=== PATIENT | male | born 1965 | race Caucasian/White ===

== ENCOUNTER 2022-04-04 02:45 | Outpatient (RCR) | payer OTHER, SELFPAY ==
[2022-04-04 09:49] LABS: Abs Immature Grans 0.02 10^3/uL (0.0-0.06); Absolute Basophil Count 0.08 10^3/uL (0.0-0.2); Absolute Eosinophil Count 0.32 10^3/uL (0.0-0.7); Absolute Lymphocyte Count 1.94 10^3/uL (1.2-3.4); Absolute Monocyte Count 0.93 10^3/uL (0.1-0.8); Absolute Neutrophil Count 4.79 10^3/uL (1.2-6.7); HCT 40.3 % (40.0-50.0); HGB 13.2 g/dL (13.5-17.5); Immature Grans % 0.2; MCH 28.7 pg (27.0-33.0); MCHC 32.8 % (32.0-36.0); MCV 88 fL (80-95); MPV 9.9 fL (8.0-11.0); Monocytes % 11.5; Neutrophils % 59.3; Platelet Count 239 10^3/uL (130-400); RDW 15.2 % (11.8-14.1); RDW-SD 49.1 fL; WBC 8.08 10^3/uL (4.4-10.8)
[2022-04-04] MEDS: Normal Saline Flush 10 ML SYR IVP (09:53)
[2022-04-04 10:04] LABS: ALT 23 U/L (16-63); AST 28 U/L (15-37); Albumin 3.5 g/dL (3.4-5.0); Alkaline Phosphatase 104 U/L (46-116); Anion Gap 4.3 mmol/L (3-11); BUN 16 mg/dL (7-18); Bilirubin, Total 0.3 mg/dL (0.2-1.0); CO2 31.7 mmol/L (21.0-32.0); CREATININE 0.7 mg/dL (0.70-1.30); Calcium 9.2 mg/dL (8.5-10.1); Chloride 103 mmol/L (98-107); Glucose 90 mg/dL (74-106); Magnesium 1.8 mg/dL (1.8-2.4); Potassium 4.1 mmol/L (3.5-5.1); Sodium 139 mmol/L (136-145); Total Protein 7.3 g/dL (6.4-8.2)
== END 2022-04-05 23:59 | disposition home or self-care (01) ==
LOC: INF 02:45
PROVIDERS: PCP Family Medicine; Visit Provider Internal Medicine Medical Oncology
DX: C34.2 Malignant neoplasm of middle lobe, bronchus or lung (principal); Z45.2 Encounter for adjustment and management of vascular access device
CPT/HCPCS: 36591; 80053; 83735; 85025

== ENCOUNTER 2022-04-06 12:40 | Emergency (ER) | payer OTHER, SELFPAY ==
[2022-04-06] VITALS (8 sets, daily range): BP systolic 147–154; BP diastolic 85–88; PULSE 78–97; RESP 13–25; TEMP 36.4; O2SAT 97–99
--- NOTE | 2022-04-06 12:54 | DI.CT_ITS ---
Exam(s) CT NECK CHEST W EXAM: CT NECK CHEST W CLINICAL HISTORY: neck swelling, r/o mass/obstruction TECHNIQUE: Imaging Protocol: Axial computed tomography images with coronal and sagittal reformatted images were created and reviewed CONTRAST MATERIAL: Intravenous: Omnipaque 350 Contrast volume:100 cc Oral: no COMPARISON: No exams were available for comparison FINDINGS: Neck CT: Parotids/submandibular/thyroid gland: Normal. Lymphadenopathy: Enlarged right supraclavicular lymph nodes, the largest 2.5 cm. Carotids/Jugular: Within normal limits. Vertebral arteries are patent. Soft tissues: The floor the mouth is unremarkable. The epiglottis and vocal cords are within normal limits. Visualized portions of the brain are unremarkable. Visualized sinuses and mastoid air cells are clear. Orbits are unremarkable. Chest CT: There is a large heterogeneous mass in the right middle lobe in portion of the inferior anterior righ t lower lobe. The mass extends into the subcarinal region versus additional subcarinal adenopathy. Th ere is compression of the lower S VC by the mass. The right pulmonary arteries are engulfed by the ma ss. The right middle lobe bronchi are also engulfed by the mass. There are increased densities are no kiarra which appear somewhat spiculated in the right upper lobe is well as interstitial thickening which could indicate interstitial spread. No pleural or pericardial effusions. Scattered tiny granulomata. No destructive bony lesion or compression fracture is seen. There is bilateral gynecomastia. There is a port over the right upper chest wall with the tip in the upper right atrium. There is left ventricular enlargement. There are mild coronary artery calcifications. The aorta is no rmal in diameter and shows mild calcification. ABDOMEN: Evaluation somewhat limited due to respiratory motion. And streak artifact. Liver: Normal density. No measurable mass. Gallbladder and biliary tract: No radiodense calculus or dilation. Pancreas: Normal density, no abnormal calcifications or inflammatory process. Spleen: Normal. Kidneys: Unremarkable where visualized. Adrenal glands: No masses seen. Abdominal Aorta: Abdominal portion non-dilated. Atherosclerotic changes. IMPRESSION: large right-sided mass consistent with patient's history of known small cell lung carcinoma. The mas s compresses the lower SVC and engulfs the right pulmonary arteries and right middle lobe bronchi. There are enlarged right supraclavicular lymph nodes but no other significant abnormality in the neck . RADIATION DOSE DELIVERED: 1,018.24mGy.cm Total DLP DATA REPOSITORY: All CT scans at this facility are submitted to the National Radiology Data Registry (NRDR) Dose Index Registry (DIR) with the [employer] (A[employer]). RADIATION OPTIMIZATION: All CT scans at this facility use at least one of these dose optimization te chniques: automated exposure control; mA and/or kV adjustment per patient size (includes targeted exa ms where dose is matched to clinical indication); or iterative reconstruction.
--- NOTE | 2022-04-06 12:57 | W.ED.GENAD ---
Discharge Plan Disposition Patient Disposition: Home Condition: Stable Discharge Details Clinical Impression: SVC syndrome Primary Care Provider: Adonis Arreaga ED Provider: Sanjay Andrade Home Meds and New Rx's Prescriptions: Continued atorvastatin 20 mg tablet 20 mg PO 1XD Label Comments: TAKE 1 TABLET BY MOUTH ONCE DAILY lisinopril 20 mg tablet 20 mg PO 1XD multivitamin with iron-mineral Tablet 1 tab PO 1XD nicotine (polacrilex) 2 mg lozenge 2 mg PO 1XD Discharge Instructions Instructions: Superior Vena Cava Syndrome (DC) Additional Instructions: you should be contacted with an appointment with vascular surgery, I spoke with Dr. Kirkpatrick from vascular surgery at [facility] if you feel more ill, have severe pain or difficulty breathing return to the emergency department Medical Decision Making <Gloria Venegas DO - Last Filed: 04/06/22 14:43> 1250 -- 56-year-old male with a history of small cell lung cancer diagnosed in March 2022 who admits to facial and neck swelling for the past few weeks, worse over the past 2 days since starting a new chemotherapy infusion. Sent come to cancer center for possible concern for angioedema. Patient has no significant lip or tongue swelling. Normal oropharynx. No submandibular swelling, drooling or trismus. Airway appears intact and presentation does not appear consistent with angioedema at this time. He does have mild erythema noted to face and neck and mild diffuse edema which is most prominent bilateral infraorbital region. Consider neck or chest obstruction in the setting of lung mass. Will obtain screening labs, CT neck and CT chest and give a dose of IV Solu-Medrol, IV Benadryl, IV Pepcid and continue to monitor. We will consult [facility] oncology for recommendations. 1400 --labs and imaging reviewed. White blood cell count 14. Normal electrolytes. CT chest notes a large right-sided mass consistent with patient's history of known small cell lung CA. This mass compresses the lower SVC and engulfed the right pulmonary arteries and right middle lobe bronchi. There are also enlarged right supraclavicular lymph nodes but no other significant abnormality in the neck. I discussed the case with [facility] oncology and they do not feel that the chemotherapy regimen is the sole etiology as his symptoms started prior to his chemotherapy. Recommend vascular consult and likely transfer for CT findings. Patient reassessed and he states he feels better. His facial and neck erythema and edema has improved. [facility] transfer initiated. Images pushed for vascular surgery to review. 1500 -- Case endorsed to Dr. Andrade to f/u with vascular surgery regarding CT findings and any additional recommendations in addition to potential transfer for monitoring. Medical Records Medical records reviewed: Yes I reviewed the patient's medical records. Imaging Data Radiologic Study: Radiologist's impression: CT NECK CHEST W CLINICAL HISTORY:? neck swelling, r/o mass/obstruction ? TECHNIQUE:? Imaging Protocol: Axial computed tomography images with coronal and sagittal reformatted images were created and reviewed CONTRAST MATERIAL:? Intravenous: Omnipaque 350 Contrast volume:100 cc Oral: no COMPARISON:? No exams were available for comparison FINDINGS: Neck CT: Parotids/submandibular/thyroid gland:? Normal. Lymphadenopathy:? Enlarged right supraclavicular lymph nodes, the largest 2.5 cm. Carotids/Jugular:? Within normal limits. Vertebral arteries are patent. Soft tissues:? The floor the mouth is unremarkable. The epiglottis and vocal cords are within normal limits. Visualized portions of the brain are unremarkable. Visualized sinuses and mastoid air cells are clear. Orbits are unremarkable. Chest CT: There is a large heterogeneous mass in the right middle lobe in portion of the inferior anterior right lower lobe. The mass extends into the subcarinal region versus additional subcarinal adenopathy. There is compression of the lower S VC by the mass. The right pulmonary arteries are engulfed by the mass. The right middle lobe bronchi are also engulfed by the mass. There are increased densities are noted which appear somewhat spiculated in the right upper lobe is well as interstitial thickening which could indicate interstitial spread. No pleural or pericardial effusions. Scattered tiny granulomata. No destructive bony lesion or compression fracture is seen. There is bilateral gynecomastia. There is a port over the right upper chest wall with the tip in the upper right atrium. There is left ventricular enlargement. There are mild coronary artery calcifications. The aorta is normal in diameter and shows mild calcification. ABDOMEN: Evaluation somewhat limited due to respiratory motion. And streak artifact. Liver: Normal density. No measurable mass. Gallbladder and biliary tract: No radiodense calculus or dilation.? Pancreas: Normal density, no abnormal calcifications or inflammatory process. Spleen: Normal. Kidneys: Unremarkable where visualized. Adrenal glands: No masses seen. Abdominal Aorta: Abdominal portion non-dilated. Atherosclerotic changes. IMPRESSION: ?large right-sided mass consistent with patient's history of known small cell lung carcinoma. The mass compresses the lower SVC and engulfs the right pulmonary arteries and right middle lobe bronchi. There are enlarged right supraclavicular lymph nodes but no other significant abnormality in the neck. Lab Data Lab results reviewed: Yes I reviewed the patient's lab results. Labs: Laboratory Tests Range/Units 04/06/22 04/06/22 13:00 13:00 WBC (4.4-10.8) 10^3/uL 14.62 H RBC (4.36-5.78) 10^6/uL 4.33 L Hgb (13.5-17.5) g/dL 12.4 L Hct (40.0-50.0) % 38.4 L MCV (80-95) fL 89 MCH (27.0-33.0) pg 28.6 MCHC (32.0-36.0) % 32.3 RDW (11.8-14.1) % 15.5 H Plt Count (130-400) 10^3/uL 249 MPV (8.0-11.0) fL 9.8 Immature Gran % 0.3 Neutrophils % 72.7 Lymphocytes % 16.7 Monocytes % 9.6 Eosinophils % 0.3 Basophils % 0.4 Nucleated RBC % (0.0-0.3) % 0.0 Absolute Neutrophils (1.2-6.7) 10^3/uL 10.63 H Absolute Lymphocytes (1.2-3.4) 10^3/uL 2.44 Absolute Monocytes (0.1-0.8) 10^3/uL 1.40 H Absolute Eosinophils (0.0-0.7) 10^3/uL 0.04 Absolute Basophils (0.0-0.2) 10^3/uL 0.06 Sodium (136-145) mmol/L 136 Potassium (3.5-5.1) mmol/L 4.0 Chloride (98-107) mmol/L 103 Carbon Dioxide (21.0-32.0) mmol/L 27.7 Anion Gap (3-11) mmol/L 5.3 BUN (7-18) mg/dL 24 H Creatinine (0.70-1.30) mg/dL 0.8 Est GFR (CKD-EPI 2020) (mL/min/1.73m2) 105.17 Glucose (74-106) mg/dL 95 Calcium (8.5-10.1) mg/dL 8.4 L Total Bilirubin (0.2-1.0) mg/dL 0.2 AST (15-37) U/L 26 ALT (16-63) U/L 33 Alkaline Phosphatase (46-116) U/L 90 Total Protein (6.4-8.2) g/dL 7.0 Albumin (3.4-5.0) g/dL 3.4 <Sanjay Andrade MD - Last Filed: 04/06/22 17:10> 1250 -- 56-year-old male with a history of small cell lung cancer diagnosed in March 2022 who admits to facial and neck swelling for the past few weeks, worse over the past 2 days since starting a new chemotherapy infusion. Sent come to cancer center for possible concern for angioedema. Patient has no significant lip or tongue swelling. Normal oropharynx. No submandibular swelling, drooling or trismus. Airway appears intact and presentation does not appear consistent with angioedema at this time. He does have mild erythema noted to face and neck and mild diffuse edema which is most prominent bilateral infraorbital region. Consider neck or chest obstruction in the setting of lung mass. Will obtain screening labs, CT neck and CT chest and give a dose of IV Solu-Medrol, IV Benadryl, IV Pepcid and continue to monitor. We will consult [facility] oncology for recommendations. 1400 --labs and imaging reviewed. White blood cell count 14. Normal electrolytes. CT chest notes a large right-sided mass consistent with patient's history of known small cell lung CA. This mass compresses the lower SVC and engulfed the right pulmonary arteries and right middle lobe bronchi. There are also enlarged right supraclavicular lymph nodes but no other significant abnormality in the neck. I discussed the case with [facility] oncology and they do not feel that the chemotherapy regimen is the sole etiology as his symptoms started prior to his chemotherapy. Recommend vascular consult and likely transfer for CT findings. Patient reassessed and he states he feels better. His facial and neck erythema and edema has improved. [facility] initiated. Images pushed for vascular surgery to review. 1500 -- Case endorsed to Dr. Andrade to f/u with vascular surgery regarding CT findings and any additional recommendations in addition to potential transfer for monitoring. still awaiting call back from [facility], patientstable, speaking clearly in no distress, no stridor breathing without any issues. He is requesting to be d/c'd as he feels well and asymptomatic now, advised would prefer to speak with vascular first and he agrees to stay spoke with Dr. Kirkpatrick from vascular surgery who did not feel emergent procedure or intervention indicated, they can follow up with him as an outpatient expeditiously. Pt advised of this plan and is comfortable with d/c, placed on f/u list to help make sure follow up occurs, return precautions given HPI <Gloria Venegas DO - Last Filed: 04/06/22 14:43> General Mode of arrival: ambulatory. Date/Time Provider Initiated Documentation: 04/06/22 12:42. Limitations to Documentation: no limitations. Information obtained by: patient. HPI Narrative: Pt is a 56yo M with a history of small cell lung cancer diagnosed in March 2022 presents for facial and neck swelling for the past few weeks, progressively worse over the past 2 days since starting a new chemotherapy infusion. Patient was sent from the cancer center where he was today to receive his third chemotherapy infusion this week. Patient states he received his first chemotherapy infusion 2 days ago his second yesterday and was scheduled for a third today but was sent here instead for his symptoms and possible angioedema. Patient states he is scheduled for chemotherapy and radiation in a few weeks. He states he is followed by oncologist Dr. Armas at [facility]. He states he has noticed eye, facial and neck swelling and redness for the past few weeks and spoke to his oncologist about this but they were going to continue to monitor. He states since his first chemotherapy infusion 2 days ago, and especially this morning he has had increase in periorbital edema and facial and neck swelling. He denies any fever, headache, difficulty swallowing, chest pain, difficulty breathing, neck pain or vomiting. He has not taken any medication for his symptoms including Benadryl, Pepcid or steroids. He denies any other recent new medications. Related Data Home Medications Medication Instructions Recorded Confirmed atorvastatin 20 mg tablet 20 mg PO 1XD 04/06/22 04/06/22 lisinopril 20 mg tablet 20 mg PO 1XD 04/06/22 04/06/22 multivitamin with iron-mineral 1 tab PO 1XD 04/06/22 04/06/22 nicotine (polacrilex) 2 mg buccal 2 mg PO 1XD 04/06/22 04/06/22 lozenge Allergies Allergy/AdvReac Type Severity Reaction Status Date / Time codeine Allergy Intermediate Other (See Unverified 04/06/22 12:55 Comment) Penicillins Allergy Intermediate Hives Unverified 04/06/22 12:55 General Stated Complaint: Cellulitis CHERELLE: 3 Review of Systems <Gloria Venegas DO - Last Filed: 04/06/22 14:43> All systems reviewed & are unremarkable except as noted in HPI and below Constitutional Constitutional: Reports as per HPI, Denies chills and Denies fever(s) Eyes Eyes: Denies blurry vision ENT Ears, Nose, Mouth, and Throat: Denies dizziness, Denies sore throat and Denies throat swelling Comments: facial and neck swelling Cardiovascular Cardiovascular: Denies chest pain and Denies dyspnea Respiratory Respiratory: Denies cough and Denies dyspnea Gastrointestinal Gastrointestinal: Denies abdominal pain, Denies diarrhea and Denies vomiting Genitourinary Genitourinary: Denies hematuria and Denies dysuria Musculoskeletal Musculoskeletal: Denies back pain and Denies numbness Integumentary/Breasts Skin/Breast: Denies lesions and Denies rash Neurologic Neurologic: Denies dizziness, Denies localized weakness and Denies numbness Allergic/Immunologic Allergic/Immunologic: Denies throat swelling PFSH <Gloria Venegas DO - Last Filed: 04/06/22 14:43> All Active Problems (Updated 04/06/22 @ 17:08 by Sanjay Andrade MD) SVC syndrome (Acute) Medical History (Updated 04/06/22 @ 17:08 by Sanjay Andrade MD) HTN (hypertension) Hx of hyperlipidemia Small cell lung cancer Surgical History (Updated 04/06/22 @ 13:07 by Gloria Venegas DO) No significant past surgical history Social History Smoking/Tobacco Use Status: Current, status unknown Smoking risk assessment performed?: Yes Alcohol Intake: never Substance use type: does not use Exam <Gloria Venegas DO - Last Filed: 04/06/22 14:43> Const General: cooperative and no acute distress Orientation: alert, awake and oriented x3 HENMT Head: normal to inspection Ears: hearing grossly normal bilaterally and external ears normal General nose exam: external nose normal Mouth: oral mucosae normal Throat: posterior oropharynx normal Other: Mild to moderate facial edema, more prominent infraorbitally bilaterally. There is no fluctuance or induration. Eyes General: appearance normal, both eyes and all related structures Pupils: PERRL EOM: EOM intact bilaterally Neck Neck: no meningeal signs, trachea midline, supple, no anterior neck swelling and No submandibular swelling Lymphatic: no lymphadenopathy noted Other: Mild erythema noted to neck but no significant edema, fluctuance, induration. Chest Chest: normal inspection of the chest and no tenderness Resp Effort & Inspection: normal respiratory effort and able to speak in complete sentences Auscultation: clear to auscultation bilaterally Cardio Rate: regular rate Rhythm: regular rhythm GI Inspection: normal to inspection Palpation: soft, not firm, not rigid and nontender Auscultation: hypoactive bowel sounds Male General Exam: Yes normal external exam Back/Spine/Pelvis Thoracic/Lumbar Spine: thoracic and lumbar spine normal to inspection Pelvis: no pain with anterior-posterior compression Skin General skin exam: no rashes or lesions noted Neuro General: patient alert, patient awake and patient oriented x3 Cognition: normal cognition Speech: speech normal Motor: muscle tone normal throughout Sensory Exam: no sensory deficits noted Extrem General: normal to inspection, full ROM, capillary refill normal, no calf tenderness bilaterally and no edema Psych Appearance: grossly normal Mental Status: mental status grossly normal Speech and Movement: speech and movement normal Affect: normal affect Course <Gloria Venegas, DO - Last Filed: 04/06/22 14:43> Vital Signs Vital signs: Vital Signs Temperature 97.6 F 04/06/22 12:43 Pulse 97 H 04/06/22 12:43 Respiratory Rate 18 04/06/22 12:43 Blood Pressure 154/86 H 04/06/22 12:43 Pulse Oximetry 98 04/06/22 12:43 Temperature 97.6 F 04/06/22 12:43 Pulse 97 H 04/06/22 12:43 Respiratory Rate 18 04/06/22 12:43 Respiratory Effort 04/06/22 12:55 Blood Pressure 154/86 H 04/06/22 12:43 Blood Pressure Position Sitting 04/06/22 12:43 Pulse Oximetry 98 04/06/22 12:43 Oxygen Delivery Method Room Air 04/06/22 12:43 Oxygen Flow Rate 0 04/06/22 12:43 Pain Level 0 04/06/22 12:43 Sign Out <Gloria Venegas DO - Last Filed: 04/06/22 14:43> Sign Out Data: Sign Out Comment: Facial and neck swelling for a few weeks. History of small cell lung CA. SVC compression on CT. Symptoms have improved with IV meds in the ED. Follow-up with [facility] vascular surgery for recommendations. Consider transfer for monitoring/treatment. Last updated by Gloria Venegas DO at 04/06/22 14:38
[2022-04-06] MEDS: Normal Saline 1,000 ML 1000 ML IV (13:02)
[2022-04-06 13:13] LABS: Abs Immature Grans 0.04 10^3/uL (0.0-0.06); Absolute Basophil Count 0.06 10^3/uL (0.0-0.2); Absolute Eosinophil Count 0.04 10^3/uL (0.0-0.7); Absolute Lymphocyte Count 2.44 10^3/uL (1.2-3.4); Basophils % 0.4; Eosinophils % 0.3; HCT 38.4 % (40.0-50.0); HGB 12.4 g/dL (13.5-17.5); Immature Grans % 0.3; Lymphocytes % 16.7; MCH 28.6 pg (27.0-33.0); MCHC 32.3 % (32.0-36.0); MCV 89 fL (80-95); MPV 9.8 fL (8.0-11.0); Monocytes % 9.6; Neutrophils % 72.7; Platelet Count 249 10^3/uL (130-400); RBC 4.33 10^6/uL (4.36-5.78); RDW 15.5 % (11.8-14.1); RDW-SD 51.2 fL; WBC 14.62 10^3/uL (4.4-10.8)
[2022-04-06] MEDS: methylPREDNISolone SUCC 125 MG VIAL IVP (13:14)
[2022-04-06] MEDS: diphenhydrAMINE 50 MG/ML VIAL IVP (13:15)
[2022-04-06 13:16] LABS: Absolute Neutrophil Count 10.63 10^3/uL (1.2-6.7)
[2022-04-06] MEDS: Famotidine 20 MG/2 ML VIAL IVP (13:16)
[2022-04-06 13:27] LABS: ALT 33 U/L (16-63); AST 26 U/L (15-37); Albumin 3.4 g/dL (3.4-5.0); Alkaline Phosphatase 90 U/L (46-116); Anion Gap 5.3 mmol/L (3-11); BUN 24 mg/dL (7-18); Bilirubin, Total 0.2 mg/dL (0.2-1.0); CO2 27.7 mmol/L (21.0-32.0); CREATININE 0.8 mg/dL (0.70-1.30); Calcium 8.4 mg/dL (8.5-10.1); Chloride 103 mmol/L (98-107); Estimated GFR 105.17 (mL/min/1.73m2); Glucose 95 mg/dL (74-106); Sodium 136 mmol/L (136-145)
[2022-04-06] MEDS: Omnipaque 350 MG/ML 500 ML BTL-Imaging package IJ (13:41)
[2022-04-06] MEDS: Normal Saline - Diluent 50 ML VIAL IJ (13:42)
--- NOTE | 2022-04-06 17:11 | NUR.NOTE ---
Nursing Note: Referral given to Care Management for [facility] [place]/Dr. Kirkpatrick was consulted; for SVC syndrome; by the end of the week.
[2022-04-06] MEDS: Heparin 500 UNITS/5 ML SYRINGE IVP (17:20)
--- NOTE | 2022-04-06 17:21 | NUR.NOTE ---
port remains accessed upon discharge due to next treatment. flushed with heparin
--- NOTE | 2022-04-07 10:11 | CMACTNOTE_ITS ---
- If Service Date Differs Date of service: 04/07/22 Time of Service: 10:11 Care Management Activity Note Minor is seen in the ED for SVC syndrome. At the request of ED provider, ASHLEY coordinates a referral to [facility] to assist Minor in obtaining an appointment for further evaluation and treatment. He has [employer] for insurance.
== END 2022-04-06 17:21 | disposition home or self-care (01) ==
PROVIDERS: Physician Assistant; Emergency Provider Emergency Medicine; PCP Family Medicine
DX: I87.1 Compression of vein (principal); L53.9 Erythematous condition, unspecified; R60.0 Localized edema; R59.0 Localized enlarged lymph nodes; I10 Essential (primary) hypertension
CPT/HCPCS: 70491; 80053; 96361; 96374; 96375; 99285; 71260; 85025; 99284; J1200; J2930

== ENCOUNTER 2022-04-25 02:08 | Outpatient (RCR) | payer OTHER, SELFPAY ==
--- OUTSIDE RECORDS SUMMARY | 2022-04-06 11:22 | XMS_ITS | Continuity of Care Document ---
:1965 Author Organization [facility] Address [address] [place] [address] Care Team Providers Name Role Phone Adonis Arreaga Primary Care Physician Encounter [facility] Date(s): 02/01/22 - 02/01/22 [facility] [address] [place] [address] Discharge Disposition: Home or Self Care Attending Physician: Isabela Gregory Admitting Physician: Isabela Gregory Referring Physician: Isabela Gregory Allergies, Adverse Reactions, Alerts Substance Reaction Severity Status codeine Dizziness Unknown Active penicillin Moderate Active aspirin Unknown Active Immunizations Given and Recorded Vaccine Date Status Refusal Reason tetanus/diphth/pertuss (Tdap) adult/adol 05/13/11 Recorde d Medications aspirin 81 mg oral capsule 81 mg = 1 cap, Oral, Daily, # 30, 0 Refill(s) Start Date: 01/03/22 Status: Orderedatorvastatin 20 mg oral tablet 20 mg = 1 tab, Oral, Daily, # 90 tab, 0 Refill(s) Start Date: 01/03/22 Status: Orderedlisinopril 20 mg oral tablet 20 mg = 1 tab, Oral, Daily, # 90 tab, 0 Refill(s) Start Date: 01/03/22 Status: Ordered Social History Social History Type Response Tobacco Current everyday tobacco use r Tobacco Use:. 1/2 PPD recently has cut back per day. Sex Male Patient Care team information PersonnelName: Adonis Arreaga MD Address: Address: [address] [id number]
--- OUTSIDE RECORDS SUMMARY | 2022-04-06 11:22 | XMS_ITS | Continuity of Care Document ---
:1965 Author Organization [facility] Address [address] [place] [address] Care Team Providers Name Role Phone Adonis Arreaga Primary Care Physician Encounter [facility] Date(s): 01/03/22 - 01/03/22 [facility] [address] [place] [address] Discharge Disposition: Home or Self Care Attending Physician: Brandon Cleveland NP Admitting Physician: Brandon Cleveland SPECIAL[employer] TR[employer]MER Allergies, Adverse Reactions, Alerts Substance Reaction Severity [...] 0 Refill(s) Start Date: 01/03/22 Status: Ordered Results Laboratory List Name Date Flu A+B (Jayleen) 01/03/22 Most recent to oldest [Reference Range]: 1 Flu A- Jayleen [Negative] Negative (01/03/22 4:00 PM) Flu B- Jayleen [Negative] Negative (01/03/22 4:00 PM) Social History Social History Type Response Tobacco Current everyday tobacco use r Tobacco Use:. 1/2 PPD recently has cut back per day. Sex Male Patient Care team information PersonnelName: Adonis Arreaga MD Address: Address: [place] [facility] [address] [address]
[2022-04-25] MEDS: Normal Saline Flush 10 ML SYR IVP (08:48)
[2022-04-25 09:01] LABS: Abs Immature Grans 0.02 10^3/uL (0.0-0.06); Absolute Basophil Count 0.07 10^3/uL (0.0-0.2); Absolute Eosinophil Count 0.13 10^3/uL (0.0-0.7); Absolute Monocyte Count 0.72 10^3/uL (0.1-0.8); Basophils % 1.7; Eosinophils % 3.2; HCT 40.5 % (40.0-50.0); HGB 13.2 g/dL (13.5-17.5); Immature Grans % 0.5; Lymphocytes % 39.6; MCH 28.2 pg (27.0-33.0); MCHC 32.6 % (32.0-36.0); MCV 87 fL (80-95); MPV 9.3 fL (8.0-11.0); Monocytes % 17.8; Neutrophils % 37.2; Platelet Count 341 10^3/uL (130-400); RBC 4.68 10^6/uL (4.36-5.78); RDW 15.4 % (11.8-14.1); RDW-SD 48.4 fL; WBC 4.04 10^3/uL (4.4-10.8)
[2022-04-25 09:15] LABS: ALT 18 U/L (16-63); AST 14 U/L (15-37); Albumin 3.3 g/dL (3.4-5.0); Alkaline Phosphatase 111 U/L (46-116); Anion Gap 6.5 mmol/L (3-11); BUN 15 mg/dL (7-18); Bilirubin, Total 0.1 mg/dL (0.2-1.0); CO2 28.5 mmol/L (21.0-32.0); CREATININE 0.8 mg/dL (0.70-1.30); Calcium 8.6 mg/dL (8.5-10.1); Chloride 106 mmol/L (98-107); Estimated GFR 105.17 (mL/min/1.73m2); Glucose 104 mg/dL (74-106); Magnesium 1.8 mg/dL (1.8-2.4); Sodium 141 mmol/L (136-145); Total Protein 6.9 g/dL (6.4-8.2)
== END 2022-05-03 23:59 | disposition home or self-care (01) ==
LOC: INF 02:08
PROVIDERS: PCP Family Medicine; Visit Provider Internal Medicine Medical Oncology
DX: C34.2 Malignant neoplasm of middle lobe, bronchus or lung (principal); Z45.2 Encounter for adjustment and management of vascular access device
CPT/HCPCS: 36591; 80053; 83735; 85025

== ENCOUNTER 2022-05-13 01:20 | Outpatient (RCR) | payer OTHER, SELFPAY ==
[2022-05-16] MEDS: Normal Saline Flush 10 ML SYR IVP (08:46)
[2022-05-16 08:54] LABS: Abs Immature Grans 0.04 10^3/uL (0.0-0.06); Absolute Basophil Count 0.07 10^3/uL (0.0-0.2); Absolute Eosinophil Count 0.13 10^3/uL (0.0-0.7); Absolute Lymphocyte Count 0.66 10^3/uL (1.2-3.4); Absolute Monocyte Count 0.91 10^3/uL (0.1-0.8); Absolute Neutrophil Count 2.09 10^3/uL (1.2-6.7); Basophils % 1.8; Eosinophils % 3.3; HCT 40.1 % (40.0-50.0); HGB 13.6 g/dL (13.5-17.5); Lymphocytes % 16.9; MCH 28.7 pg (27.0-33.0); MCHC 33.9 % (32.0-36.0); MCV 85 fL (80-95); MPV 9.1 fL (8.0-11.0); Monocytes % 23.3; Neutrophils % 53.7; Platelet Count 271 10^3/uL (130-400); RBC 4.74 10^6/uL (4.36-5.78); RDW 15.6 % (11.8-14.1); RDW-SD 47.3 fL
[2022-05-16 09:26] LABS: ALT 22 U/L (16-63); AST 17 U/L (15-37); Albumin 3.4 g/dL (3.4-5.0); Alkaline Phosphatase 108 U/L (46-116); Anion Gap 7.6 mmol/L (3-11); BUN 14 mg/dL (7-18); Bilirubin, Total 0.2 mg/dL (0.2-1.0); CO2 27.4 mmol/L (21.0-32.0); CREATININE 0.7 mg/dL (0.70-1.30); Calcium 8.8 mg/dL (8.5-10.1); Chloride 104 mmol/L (98-107); Glucose 99 mg/dL (74-106); Magnesium 1.9 mg/dL (1.8-2.4); Potassium 4.3 mmol/L (3.5-5.1); Sodium 139 mmol/L (136-145); Total Protein 7.4 g/dL (6.4-8.2)
== END 2022-06-03 23:59 | disposition home or self-care (01) ==
LOC: INF 01:20
PROVIDERS: PCP Family Medicine; Visit Provider Internal Medicine Medical Oncology
DX: C34.2 Malignant neoplasm of middle lobe, bronchus or lung (principal); Z45.2 Encounter for adjustment and management of vascular access device
CPT/HCPCS: 36591; 80053; 83735; 85025

== ENCOUNTER 2022-06-06 02:37 | Outpatient (RCR) | payer OTHER, SELFPAY ==
[2022-06-06] MEDS: Normal Saline Flush 10 ML SYR IVP (08:39)
[2022-06-06 08:44] LABS: Abs Immature Grans 0.03 10^3/uL (0.0-0.06); Absolute Basophil Count 0.04 10^3/uL (0.0-0.2); Absolute Lymphocyte Count 0.31 10^3/uL (1.2-3.4); Absolute Monocyte Count 0.77 10^3/uL (0.1-0.8); Absolute Neutrophil Count 1.68 10^3/uL (1.2-6.7); Basophils % 1.4; Eosinophils % 3.4; HCT 34.7 % (40.0-50.0); HGB 11.9 g/dL (13.5-17.5); Lymphocytes % 10.6; MCH 29.4 pg (27.0-33.0); MCHC 34.3 % (32.0-36.0); MCV 86 fL (80-95); MPV 8.9 fL (8.0-11.0); Monocytes % 26.3; Neutrophils % 57.3; Platelet Count 270 10^3/uL (130-400); RBC 4.05 10^6/uL (4.36-5.78); RDW 16.2 % (11.8-14.1); RDW-SD 50.2 fL; WBC 2.93 10^3/uL (4.4-10.8)
[2022-06-06 09:01] LABS: ALT 17 U/L (16-63); AST 13 U/L (15-37); Albumin 3.2 g/dL (3.4-5.0); Alkaline Phosphatase 103 U/L (46-116); Anion Gap 7.8 mmol/L (3-11); BUN 20 mg/dL (7-18); Bilirubin, Total 0.2 mg/dL (0.2-1.0); CO2 28.2 mmol/L (21.0-32.0); CREATININE 0.8 mg/dL (0.70-1.30); Calcium 8.7 mg/dL (8.5-10.1); Chloride 107 mmol/L (98-107); Estimated GFR 105.17 (mL/min/1.73m2); Glucose 107 mg/dL (74-106); Magnesium 1.9 mg/dL (1.8-2.4); Potassium 4.1 mmol/L (3.5-5.1); Sodium 143 mmol/L (136-145); Total Protein 7.1 g/dL (6.4-8.2)
== END 2022-07-03 23:59 | disposition home or self-care (01) ==
LOC: INF 02:37
PROVIDERS: PCP Family Medicine; Visit Provider Internal Medicine Medical Oncology
DX: C34.2 Malignant neoplasm of middle lobe, bronchus or lung (principal); Z45.2 Encounter for adjustment and management of vascular access device
CPT/HCPCS: 36591; 80053; 83735; 85025

== ENCOUNTER 2022-07-04 04:14 | Outpatient (RCR) | payer OTHER, SELFPAY ==
[2022-07-04 12:33] LABS: Abs Immature Grans 0.07 10^3/uL (0.0-0.06); Absolute Basophil Count 0.07 10^3/uL (0.0-0.2); Absolute Eosinophil Count 0.19 10^3/uL (0.0-0.7); Absolute Lymphocyte Count 0.67 10^3/uL (1.2-3.4); Absolute Monocyte Count 0.99 10^3/uL (0.1-0.8); Absolute Neutrophil Count 4.41 10^3/uL (1.2-6.7); Basophils % 1.1; HGB 12.2 g/dL (13.5-17.5); Immature Grans % 1.1; Lymphocytes % 10.5; MCH 31.1 pg (27.0-33.0); MCHC 34.9 % (32.0-36.0); MCV 89 fL (80-95); MPV 9.3 fL (8.0-11.0); Monocytes % 15.5; Neutrophils % 68.8; Platelet Count 272 10^3/uL (130-400); RBC 3.92 10^6/uL (4.36-5.78); RDW 17.5 % (11.8-14.1); RDW-SD 57.2 fL
[2022-07-04 12:51] LABS: ALT 17 U/L (16-63); AST 8 U/L (15-37); Albumin 3.5 g/dL (3.4-5.0); Alkaline Phosphatase 100 U/L (46-116); Anion Gap 8.1 mmol/L (3-11); BUN 17 mg/dL (7-18); Bilirubin, Total 0.2 mg/dL (0.2-1.0); CO2 26.9 mmol/L (21.0-32.0); CREATININE 0.8 mg/dL (0.70-1.30); Calcium 8.5 mg/dL (8.5-10.1); Chloride 107 mmol/L (98-107); Estimated GFR 105.17 (mL/min/1.73m2); Glucose 93 mg/dL (74-106); Magnesium 1.9 mg/dL (1.8-2.4); Sodium 142 mmol/L (136-145); Total Protein 7.1 g/dL (6.4-8.2)
[2022-07-04] MEDS: Normal Saline Flush 10 ML SYR IVP (14:12)
[2022-07-04] MEDS: Heparin 500 UNITS/5 ML SYRINGE IV (14:13)
== END 2022-08-03 23:59 | disposition home or self-care (01) ==
LOC: INF 04:14
PROVIDERS: PCP Family Medicine; Visit Provider Internal Medicine Medical Oncology
DX: C34.2 Malignant neoplasm of middle lobe, bronchus or lung (principal); Z45.2 Encounter for adjustment and management of vascular access device
CPT/HCPCS: 36591; 80053; 83735; 85025

== ENCOUNTER 2022-10-17 03:35 | Outpatient (RCR) | payer OTHER, SELFPAY ==
[2022-10-17 10:46] LABS: Abs Immature Grans 0.02 10^3/uL (0.0-0.06); Absolute Basophil Count 0.04 10^3/uL (0.0-0.2); Absolute Eosinophil Count 0.18 10^3/uL (0.0-0.7); Absolute Lymphocyte Count 0.73 10^3/uL (1.2-3.4); Absolute Monocyte Count 0.62 10^3/uL (0.1-0.8); Absolute Neutrophil Count 4.24 10^3/uL (1.2-6.7); Basophils % 0.7; Eosinophils % 3.1; HCT 39.8 % (40.0-50.0); HGB 13.3 g/dL (13.5-17.5); Immature Grans % 0.3; Lymphocytes % 12.5; MCH 29.4 pg (27.0-33.0); MCHC 33.4 % (32.0-36.0); MCV 88 fL (80-95); MPV 9.1 fL (8.0-11.0); Monocytes % 10.6; Neutrophils % 72.8; Platelet Count 230 10^3/uL (130-400); RBC 4.52 10^6/uL (4.36-5.78); RDW 12.3 % (11.8-14.1); RDW-SD 39.4 fL; WBC 5.83 10^3/uL (4.4-10.8)
[2022-10-17 11:04] LABS: ALT 19 U/L (16-63); AST 16 U/L (15-37); Albumin 3.3 g/dL (3.4-5.0); Alkaline Phosphatase 96 U/L (46-116); Anion Gap 7.7 mmol/L (3-11); BUN 18 mg/dL (7-18); Bilirubin, Total 0.3 mg/dL (0.2-1.0); CO2 26.3 mmol/L (21.0-32.0); CREATININE 0.9 mg/dL (0.70-1.30); Calcium 8.7 mg/dL (8.5-10.1); Chloride 108 mmol/L (98-107); Estimated GFR 100.86 (mL/min/1.73m2); Glucose 97 mg/dL (74-106); Sodium 142 mmol/L (136-145)
[2022-10-17] MEDS: Heparin 500 UNITS/5 ML SYRINGE IV (11:50)
[2022-10-17] MEDS: Normal Saline Flush 10 ML SYR IVP (11:50)
== END 2022-11-03 23:59 | disposition home or self-care (01) ==
LOC: INF 03:35
PROVIDERS: PCP Family Medicine; Visit Provider Internal Medicine Medical Oncology
DX: C34.91 Malignant neoplasm of unspecified part of right bronchus or lung (principal); Z45.2 Encounter for adjustment and management of vascular access device
CPT/HCPCS: 36591; 80053; 83735; 85025

== ENCOUNTER → 2022-12-21 03:17 | Outpatient (CLI) | payer OTHER, SELFPAY ==
--- NOTE | 2022-12-21 | DI.CT_ITS ---
Exam(s) CT CHEST W EXAM: CT CHEST W CLINICAL HISTORY: RT LUNG CA,C34.91,S/P CHEMO AND XRT TECHNIQUE: Imaging Protocol: Axial computed tomography images with coronal and sagittal reformatted images were created and reviewed CONTRAST MATERIAL: Intravenous: Omnipaque 350Contrast volume:70 mL. COMPARISON: CT CT NECK CHEST W from 04/06/[address] CHEST W from 10/17/2022 FINDINGS: Tracheobronchial tree: Patent where visualized. Pulmonary parenchyma: There has been worsening of the volume loss and consolidation in the right huong hilar region compared to the prior examination. Persistent bronchiectatic changes are seen in the per ihilar region. Increasing soft tissue consolidation is seen anteriorly in the right lower lobe. This may reflect postobstructive atelectasis or pneumonia. Extension of carcinoma cannot be excluded. Ther e are calcified granuloma seen in the lungs. No focal infiltrates are seen on the left. There is a sl ight rightward shift of the midline consistent with volume loss in the right hemithorax. Mediastinum and Marce: The mediastinum is grossly unchanged. There again seen dense enlarged lymph nod es in the mediastinum and right hilum. There is thickening of the wall of the esophagus diffusely. Thyroid gland: Unremarkable. Pleura: There is a stable moderate right pleural effusion. No left pleural effusion. No pneumothorax. Heart: The heart is not dilated. Coronary artery calcification is present. There is a tiny pericardia l effusion. Aorta: Thoracic aorta non-dilated. Atherosclerosis. Pulmonary arteries: The pulmonary arteries are not sufficiently opacified for evaluation of pulmonary emboli due to timing of the bolus. Upper abdomen: Unremarkable. Lymph nodes: Within normal limits. Bones: Within normal limits for the patient's age. No aggressive osseous lesions are present. Tubes, Catheters, and Lines: There is a right-sided port. Soft tissues: Gynecomastia. IMPRESSION: 1. Increased consolidation/density in the right perihilar region. This may represent worsening carcin eugenie. There is an area of increased consolidation in the anterior aspect of the right lower lobe which may represent postobstructive atelectasis or pneumonia or neoplastic extension. 2. Increased volume loss in the right hemithorax with a slight rightward shift of the mediastinum. 3. Persistent moderate right pleural effusion. 4. Diffuse thickening of the wall of the esophagus. Inflammation or infection should be considered. RADIATION DOSE DELIVERED: Total DLP DATA REPOSITORY: All CT scans at this facility are submitted to the National Radiology Data Registry (NRDR) Dose Index Registry (DIR) with the [employer] (ACR). RADIATION OPTIMIZATION: All CT scans at this facility use at least one of these dose optimization te chniques: automated exposure control; mA and/or kV adjustment per patient size (includes targeted exa ms where dose is matched to clinical indication); or iterative reconstruction.
[2022-12-21] MEDS: Gadoterate meglumine 20 ML SYRINGE 15 ML IVP (08:34)
--- NOTE | 2022-12-21 08:45 | DI.MRI_ITS ---
Exam(s) MR BRAIN WO/W EXAM: MR BRAIN WO/W CLINICAL HISTORY: RT LUNG CA,C34.91,? METS TECHNIQUE: Multiplanar multisequence MRI of the brain was performed. CONTRAST MATERIAL: IV Contrast: 15 mL of Dotarem contrast administered. COMPARISON: No exams were available for comparison FINDINGS: VENTRICLES AND EXTRA AXIAL SPACES: Normal in size and morphology for the patient's age. HEMORRHAGE: None. CEREBRAL PARENCHYMA: No focus of restricted diffusion to suggest acute infarct. No space-occupying le donna identified. There are areas of hyperintense signal seen in the white matter which are nonenhanci ng. These are seen on the FLAIR and T2 weighted images. These most likely reflect early small vesse l ischemic disease. Other demyelinating processes cannot be entirely excluded. MIDLINE SHIFT: None. BRAINSTEM/CEREBELLUM: Normal. CALVARIUM: Normal. ENHANCEMENT: No suspicious enhancement identified. VISUALIZED PARANASAL SINUSES/MASTOIDS: There is mucosal thickening seen in the left sphenoid sinus. There is a small mucous retention cyst or polyp in the right maxillary sinus. There is opacification of several left ethmoid air cells. [place]: Normal flow void. PITUITARY GLAND: Unremarkable. OTHER FINDINGS: IMPRESSION: No evidence of intracranial metastatic disease. DATA REPOSITORY:
[2022-12-21] MEDS: Normal Saline - Diluent 50 ML VIAL IJ (09:20)
[2022-12-21] MEDS: Omnipaque 350 MG/ML 500 ML BTL-Imaging package IJ (09:21)
== END ==
PROVIDERS: PCP Family Medicine; Visit Provider Nurse Practitioner Family
DX: C34.31 Malignant neoplasm of lower lobe, right bronchus or lung (principal); Z92.21 Personal history of antineoplastic chemotherapy
CPT/HCPCS: 70553; 71260

== ENCOUNTER 2022-12-21 03:43 | Outpatient (RCR) | payer OTHER, SELFPAY ==
[2022-12-21] MEDS: Normal Saline Flush 10 ML SYR IVP (07:31)
[2022-12-21] MEDS: Heparin 500 UNITS/5 ML SYRINGE IV (07:32)
[2022-12-21 07:37] LABS: Abs Immature Grans 0.04 10^3/uL (0.0-0.06); Absolute Basophil Count 0.04 10^3/uL (0.0-0.2); Absolute Eosinophil Count 0.21 10^3/uL (0.0-0.7); Absolute Monocyte Count 0.86 10^3/uL (0.1-0.8); Absolute Neutrophil Count 5.27 10^3/uL (1.2-6.7); Basophils % 0.6; Eosinophils % 2.9; HCT 36.2 % (40.0-50.0); HGB 12.1 g/dL (13.5-17.5); Immature Grans % 0.6; Lymphocytes % 9.8; MCH 29.4 pg (27.0-33.0); MCHC 33.4 % (32.0-36.0); MCV 88 fL (80-95); MPV 9.1 fL (8.0-11.0); Monocytes % 12.1; Platelet Count 355 10^3/uL (130-400); RBC 4.12 10^6/uL (4.36-5.78); RDW 14.6 % (11.8-14.1); RDW-SD 47.4 fL; WBC 7.12 10^3/uL (4.4-10.8)
[2022-12-21 07:56] LABS: ALT 25 U/L (16-63); AST 18 U/L (15-37); Albumin 2.8 g/dL (3.4-5.0); Alkaline Phosphatase 98 U/L (46-116); Anion Gap 7.8 mmol/L (3-11); BUN 12 mg/dL (7-18); Bilirubin, Total 0.2 mg/dL (0.2-1.0); CO2 26.2 mmol/L (21.0-32.0); CREATININE 0.8 mg/dL (0.70-1.30); Calcium 9.5 mg/dL (8.5-10.1); Chloride 103 mmol/L (98-107); Estimated GFR 104.51 (mL/min/1.73m2); Glucose 113 mg/dL (74-106); Sodium 137 mmol/L (136-145); Total Protein 7.7 g/dL (6.4-8.2)
== END 2023-01-03 23:59 | disposition home or self-care (01) ==
LOC: INF 03:43
PROVIDERS: PCP Family Medicine; Visit Provider Internal Medicine Medical Oncology
DX: C34.2 Malignant neoplasm of middle lobe, bronchus or lung (principal); Z45.2 Encounter for adjustment and management of vascular access device
CPT/HCPCS: 36591; 80053; 85025

== ENCOUNTER 2023-02-21 09:52 | Outpatient (RCR) | payer OTHER, SELFPAY ==
[2023-02-21] MEDS: Normal Saline Flush 10 ML SYR IVP (11:07)
[2023-02-21] MEDS: Heparin 500 UNITS/5 ML SYRINGE IV (11:07)
[2023-02-21] MEDS: Water,Injection,Sterile 10 ML VIAL (11:08)
== END 2023-03-05 23:59 | disposition home or self-care (01) ==
LOC: INF 09:52
PROVIDERS: PCP Family Medicine; Visit Provider Internal Medicine Medical Oncology
DX: C34.2 Malignant neoplasm of middle lobe, bronchus or lung (principal); Z45.2 Encounter for adjustment and management of vascular access device
CPT/HCPCS: 96523

== ENCOUNTER 2023-03-14 02:23 | Outpatient (RCR) | payer OTHER, SELFPAY ==
[2023-03-14] MEDS: Normal Saline Flush 10 ML SYR IVP (08:40)
[2023-03-14 08:49] LABS: Abs Immature Grans 0.02 10^3/uL (0.0-0.06); Absolute Basophil Count 0.06 10^3/uL (0.0-0.2); Absolute Eosinophil Count 0.22 10^3/uL (0.0-0.7); Absolute Lymphocyte Count 0.73 10^3/uL (1.2-3.4); Absolute Monocyte Count 0.88 10^3/uL (0.1-0.8); Absolute Neutrophil Count 4.86 10^3/uL (1.2-6.7); Basophils % 0.9; Eosinophils % 3.2; HGB 13.9 g/dL (13.5-17.5); Immature Grans % 0.3; Lymphocytes % 10.8; MCH 30.2 pg (27.0-33.0); MCHC 33.9 % (32.0-36.0); MCV 89 fL (80-95); MPV 9.3 fL (8.0-11.0); Neutrophils % 71.8; Platelet Count 228 10^3/uL (130-400); RDW 13.5 % (11.8-14.1); RDW-SD 44.2 fL; WBC 6.77 10^3/uL (4.4-10.8)
[2023-03-14 09:05] LABS: ALT 20 U/L (16-63); AST 11 U/L (15-37); Albumin 3.3 g/dL (3.4-5.0); Alkaline Phosphatase 96 U/L (46-116); Anion Gap 6.5 mmol/L (3-11); BUN 20 mg/dL (7-18); Bilirubin, Total 0.3 mg/dL (0.2-1.0); CO2 30.5 mmol/L (21.0-32.0); CREATININE 0.9 mg/dL (0.70-1.30); Chloride 106 mmol/L (98-107); Estimated GFR 100.86 (mL/min/1.73m2); Glucose 102 mg/dL (74-106); Magnesium 1.9 mg/dL (1.8-2.4); Potassium 3.7 mmol/L (3.5-5.1); Sodium 143 mmol/L (136-145); Total Protein 7.1 g/dL (6.4-8.2)
== END 2023-04-05 23:59 | disposition home or self-care (01) ==
LOC: INF 02:23
PROVIDERS: PCP Family Medicine; Visit Provider Internal Medicine Medical Oncology
DX: C34.2 Malignant neoplasm of middle lobe, bronchus or lung (principal); Z45.2 Encounter for adjustment and management of vascular access device
CPT/HCPCS: 36591; 80053; 83735; 85025

== ENCOUNTER → 2023-06-12 02:13 | Outpatient (CLI) | payer OTHER, SELFPAY ==
--- NOTE | 2023-06-12 | DI.MRI_ITS ---
Exam(s) MR BRAIN WO/W EXAM: MR BRAIN WO/W CLINICAL HISTORY: LUNG CANCER C34.91 MONITOR TECHNIQUE: Multiplanar multisequence MRI of the brain was performed. Both noninfused and contrast i nfused sequences were performed. IV Contrast injected was 17 cc Dotarem. COMPARISON: MR MR BRAIN WO/W from 12/21/2022 FINDINGS: CEREBRAL PARENCHYMA: No evidence of intracranial hemorrhage, mass effect nor shift of midline structu re. No extraaxial fluid collections. Ventricles are not enlarged nor shifted. There is no significant focal signal abnormality in the cerebellar hemispheres nor within the doris, m idbrain, and thalami. Previously described areas of white matter FLAIR bright signal abnormality are unchanged from previou s and are not associated with hemorrhage, surrounding edema, nor abnormal enhancement. DWI: No areas of restricted diffusion to suggest acute ischemic event. SWI: No microhemorrhages evident. There are no ring enhancing lesions in the brain. There is no abnormal meningeal enhancement. PITUITARY GLAND: No mass nor parasellar abnormality. No obvious abnormality in the cavernous sinuses. FLOW VOIDS: The expected flow void are noted. No evidence of obvious aneurysm nor obvious vascular ma lformation. PARANASAL SINUSES: The visualized paranasal sinuses appear unremarkable. ORBITS: No obvious abnormal findings. IMPRESSION: 1. No significant new intracranial findings on this MRI scan of the brain. Previously described FLAI R bright periventricular white matter signal abnormalities are again noted which are not associated w ith hemorrhage, surrounding edema, restricted diffusion, nor enhancement. Not consistent with metast atic brain disease. 2. No abnormal enhancing intracranial findings. There are no ring enhancing lesions in the brain and there is no abnormal meningeal enhancement. DATA REPOSITORY:
[2023-06-12] MEDS: Normal Saline Flush 10 ML SYR IVP (08:55)
[2023-06-12] MEDS: Gadoterate meglumine 20 ML SYRINGE 17 ML IVP (08:56)
[2023-06-12] MEDS: Omnipaque 350 MG/ML 100 ML BTL 70 ML IJ (09:59)
[2023-06-12] MEDS: Normal Saline - Diluent 50 ML VIAL IJ (10:00)
--- NOTE | 2023-06-12 10:05 | DI.CT_ITS ---
Exam(s) CT CHEST W EXAM: CT CHEST W CLINICAL HISTORY: LUNG CANCER C34.91 MONITOR. TECHNIQUE: Multi planar reconstructions were performed. CONTRAST MATERIAL: Omnipaque 350; 75 cc COMPARISON: CT CT CHEST W from 10/17/[address] CHEST W from 03/14/2023 FINDINGS: CHEST: LUNGS: Decreased right hemithoracic volume is again noted. The area of consolidation-infiltrate in t he right lung exhibits no significant change from the study in March 2023 and the size of the right pleural effusion is also stable and non loculated in appearance. Multiple small calcified granuloma s again noted. Multiple calcified granulomas are again noted in the opposite-left lung but no new ominous left lung infiltrates nor left pleural effusion. MEDIASTINUM: Unchanged from previous. No new adenopathy. Visualized thyroid unremarkable.Circumfere ntially thickened esophagus unchanged from previous and possibly related to radiation treatment. CARDIAC: Heart size is normal. Mild thickening of the pericardium is unchanged thoracic aorta unrema rkable. VISUALIZED UPPER ABDOMEN:No new adrenal masses. No liver lesions seen. Spleen size normal. There i s a 4 x 4 mm fat density lesion in the pancreatic head uncinate process, unchanged from 03/14/2023. Has benign appearance. Remainder of the visualized pancreas appears unremarkable. OSSEOUS: No significant osseous lesions.No fractures.. IMPRESSION: 1. No significant change compared to prior chest CT scans of 10/17/2022 and 03/14/2023. 2. Again noted is circumferential thickening of the esophagus wall which is possibly related to post radiation treatment changes. 3. There is a 4 mm fat density lesion seen in the uncinate process of the pancreas which has benign appearance and is unchanged from CT scan of 03/14/2023. CT scan of 10/17/2022 did not include this i n the field of view.. RADIATION DOSE DELIVERED: Total DLP DATA REPOSITORY: All CT scans at this facility are submitted to the National Radiology Data Registry (NRDR) Dose Index Registry (DIR) with the [employer] (ACR). RADIATION OPTIMIZATION: All CT scans at this facility use at least one of these dose optimization te chniques: automated exposure control; mA and/or kV adjustment per patient size (includes targeted exa ms where dose is matched to clinical indication); or iterative reconstruction.
== END ==
PROVIDERS: PCP Family Medicine; Visit Provider Nurse Practitioner Family
DX: C34.91 Malignant neoplasm of unspecified part of right bronchus or lung (principal); R90.82 White matter disease, unspecified; K22.89 Other specified disease of esophagus; Z92.3 Personal history of irradiation; K86.89 Other specified diseases of pancreas
CPT/HCPCS: 70553; 71260; J3490

== ENCOUNTER 2023-06-12 03:51 | Outpatient (RCR) | payer OTHER, SELFPAY ==
[2023-06-12] MEDS: Normal Saline Flush 10 ML SYR IVP (08:12)
[2023-06-12 08:29] LABS: Abs Immature Grans 0.01 10^3/uL (0.0-0.06); Absolute Basophil Count 0.05 10^3/uL (0.0-0.2); Absolute Eosinophil Count 0.16 10^3/uL (0.0-0.7); Absolute Lymphocyte Count 0.85 10^3/uL (1.2-3.4); Absolute Monocyte Count 0.83 10^3/uL (0.1-0.8); Absolute Neutrophil Count 4.46 10^3/uL (1.2-6.7); Basophils % 0.8; Eosinophils % 2.5; HCT 42.9 % (40.0-50.0); HGB 14.3 g/dL (13.5-17.5); Immature Grans % 0.2; Lymphocytes % 13.4; MCH 30.4 pg (27.0-33.0); MCHC 33.3 % (32.0-36.0); MCV 91 fL (80-95); MPV 9.2 fL (8.0-11.0); Monocytes % 13.1; Platelet Count 213 10^3/uL (130-400); RDW 13.4 % (11.8-14.1); RDW-SD 45.7 fL; WBC 6.36 10^3/uL (4.4-10.8)
[2023-06-12 08:52] LABS: ALT 31 U/L (16-63); AST 14 U/L (15-37); Albumin 3.4 g/dL (3.4-5.0); Alkaline Phosphatase 95 U/L (46-116); Anion Gap 7.7 mmol/L (3-11); BUN 19 mg/dL (7-18); Bilirubin, Total 0.3 mg/dL (0.2-1.0); CO2 29.3 mmol/L (21.0-32.0); CREATININE 0.8 mg/dL (0.70-1.30); Calcium 8.8 mg/dL (8.5-10.1); Chloride 107 mmol/L (98-107); Estimated GFR 104.51 (mL/min/1.73m2); Glucose 82 mg/dL (74-106); Magnesium 1.7 mg/dL (1.8-2.4); Sodium 144 mmol/L (136-145); Total Protein 7.1 g/dL (6.4-8.2)
== END 2023-07-04 23:59 | disposition home or self-care (01) ==
LOC: INF 03:51
PROVIDERS: PCP Family Medicine; Visit Provider Nurse Practitioner Family
DX: C34.91 Malignant neoplasm of unspecified part of right bronchus or lung (principal); Z45.2 Encounter for adjustment and management of vascular access device
CPT/HCPCS: 36591; 80053; 83735; 85025

== ENCOUNTER → 2023-09-15 00:12 | Outpatient (CLI) | payer OTHER, SELFPAY ==
--- NOTE | 2023-09-15 | DI.MRI_ITS ---
Exam(s) MR BRAIN WO/W EXAM: MR BRAIN WO/W CLINICAL HISTORY: SCLC, RT, S/P CHEMO, C34.91, RESTAGING. TECHNIQUE: Multiplanar multisequence MRI of the brain was performed. CONTRAST MATERIAL: IV Contrast: 17 ML of Dotarem contrast administered. COMPARISON: MR MR BRAIN WO/W from 12/21/2022 MR MR BRAIN WO/W from 06/12/2023 FINDINGS: VENTRICLES AND EXTRA AXIAL SPACES: Normal in size and morphology for the patient's age. HEMORRHAGE: None. CEREBRAL PARENCHYMA: No focus of restricted diffusion to suggest acute infarct. No space-occupying le donna identified. There are few scattered high signal foci in the white matter likely reflecting mi ld microvascular changes. Unchanged from prior. MIDLINE SHIFT: None. BRAINSTEM/CEREBELLUM: There is now an enhancing lesion seen at the posterior inferior right cerebella r hemisphere measuring 12 by 13 x 11 millimeters. There is a visible feeding vessel. CALVARIUM: Normal. VISUALIZED PARANASAL SINUSES/MASTOIDS: Clear. Orbits: Unremarkable. Pituitary: Normal. Vasculature: Normal flow voids. IMPRESSION: 12 millimeter enhancing lesion in the right posterior inferior cerebellum consistent with metastatic disease. No additional abnormal enhancing foci. DATA REPOSITORY:
[2023-09-15] MEDS: Gadoterate meglumine 20 ML VIAL 17 ML IVP (08:42)
[2023-09-15] MEDS: Normal Saline Flush 10 ML SYR IJ (08:43)
[2023-09-15] MEDS: Barium Sulfate 2% W/V-Creamy Vanilla Smoothie 450 ML BTL PO ×2 (12:21→12:22)
[2023-09-15] MEDS: Normal Saline - Diluent 50 ML VIAL IJ (12:23)
[2023-09-15] MEDS: Omnipaque 350 MG/ML 500 ML BTL-Imaging package 100 ML IJ (12:24)
--- NOTE | 2023-09-15 12:25 | DI.CT_ITS ---
Exam(s) CT CHEST/ABD/PEL W EXAM: CT CHEST/ABD/PEL W CLINICAL HISTORY: SCLC, Rt, C34.91, s/p chemo, restaging. TECHNIQUE: Imaging Protocol: Axial computed tomography images with coronal and sagittal reformatted images were created and reviewed CONTRAST MATERIAL: Intravenous: Omnipaque 350 Contrast volume:100 ml Oral: yes / COMPARISON: CT CT CHEST W from 06/12/2023 FINDINGS: CHEST: Tracheobronchial tree: Patent. Pulmonary parenchyma: Right-sided volume loss again noted. Stable appearance of right perihilar dens ities. Stable small nodules in the right upper lobe. Multiple scattered calcified granulomas. Pleura: Stable small right pleural effusion. Mediastinum: Within stable esophageal wall thickening. Calcified lymph nodes noted which may be seco ndary to old granulomatous disease. Aorta: Thoracic portion non-dilated. Pulmonary arteries: No visible emboli. Heart: Normal size. Stable pericardial thickening versus tiny effusion. Bones: Unremarkable for age. No lytic or blastic lesions.No compression fractures. Soft tissues: Port over right upper chest. Mild bilateral gynecomastia ABDOMEN and PELVIS: Liver: Normal density. No measurable mass. Gallbladder and biliary tract: No evidence of stones or wall thickening. No biliary dilatation. Pancreas: Normal density, no abnormal calcifications or inflammatory process. Spleen: Normal. Kidneys: Normal size, contour and axis. No radiodense stones. No obstructive uropathy. No suspicious masses seen. Adrenal glands: No masses seen. Vasculature: Abdominal aorta non-dilated. A severe atherosclerotic changes Lymph nodes: Stable small lymph node medial to the stomach. Soft tissues: Unremarkable. Bladder: Unremarkable. Bowel: No obstruction or bowel wall thickening. Sigmoid diverticulosis. No evidence of diverticuli tis. Normal quantity of stool. Peritoneal cavity: No ascites. No focal collection. No mesenteric inflammatory response. No free ai r. Bones: Unremarkable for age. Reproductive organs: Within normal limits. IMPRESSION: Stable appearance of the right chest with post treatment changes area of right perihilar consolidatio n/scarring. Stable small right pleural effusion. Stable small lymph node medial to the stomach. No other adenopathy or other site of metastatic disea se... RADIATION DOSE DELIVERED: 1,824.3mGy.cm Total DLP DATA REPOSITORY: All CT scans at this facility are submitted to the National Radiology Data Registry (NRDR) Dose Index Registry (DIR) with the [employer] (ACR). RADIATION OPTIMIZATION: All CT scans at this facility use at least one of these dose optimization te chniques: automated exposure control; mA and/or kV adjustment per patient size (includes targeted exa ms where dose is matched to clinical indication); or iterative reconstruction.
== END ==
PROVIDERS: PCP Family Medicine; Visit Provider Internal Medicine Medical Oncology
DX: C34.91 Malignant neoplasm of unspecified part of right bronchus or lung (principal); J91.8 Pleural effusion in other conditions classified elsewhere
CPT/HCPCS: 70553; 74177; 80053; 71260; 83615; 83735; 85025

== ENCOUNTER 2023-09-15 00:38 | Outpatient (RCR) | payer OTHER, SELFPAY ==
[2023-09-15] MEDS: Normal Saline Flush 10 ML SYR IVP (08:16)
[2023-09-15 08:30] LABS: Abs Immature Grans 0.01 10^3/uL (0.0-0.06); Absolute Basophil Count 0.06 10^3/uL (0.0-0.2); Absolute Eosinophil Count 0.21 10^3/uL (0.0-0.7); Absolute Monocyte Count 0.74 10^3/uL (0.1-0.8); Absolute Neutrophil Count 4.93 10^3/uL (1.2-6.7); Basophils % 0.9 %; Eosinophils % 3.1 %; HCT 44.3 % (40.0-50.0); HGB 15.1 g/dL (13.5-17.5); Immature Grans % 0.1 %; Lymphocytes % 11.9 %; MCH 30.4 pg (27.0-33.0); MCHC 34.1 % (32.0-36.0); MCV 89 fL (80-95); MPV 9.6 fL (8.0-11.0); Platelet Count 240 10^3/uL (130-400); RBC 4.96 10^6/uL (4.36-5.78); RDW 12.9 % (11.8-14.1); RDW-SD 42.3 fL; WBC 6.75 10^3/uL (4.4-10.8)
[2023-09-15 09:02] LABS: ALT 29 U/L (16-63); AST 18 U/L (15-37); Albumin 3.4 g/dL (3.4-5.0); Alkaline Phosphatase 109 U/L (46-116); Anion Gap 9.8 mmol/L (3-11); BUN 15 mg/dL (7-18); Bilirubin, Total 0.48 mg/dL (0.2-1.0); CO2 25.2 mmol/L (21.0-32.0); CREATININE 0.9 mg/dL (0.70-1.30); Calcium 8.6 mg/dL (8.5-10.1); Chloride 106 mmol/L (98-107); Estimated GFR 100.86 (mL/min/1.73m2); Glucose 101 mg/dL (74-106); Magnesium 1.8 mg/dL (1.8-2.4); Sodium 141 mmol/L (136-145); Total Protein 7.3 g/dL (6.4-8.2)
[2023-09-15 09:16] LABS: LDH 177 U/L (85-227)
== END 2023-10-04 23:59 | disposition home or self-care (01) ==
LOC: INF 00:38
PROVIDERS: PCP Family Medicine; Visit Provider Internal Medicine Medical Oncology
DX: C34.2 Malignant neoplasm of middle lobe, bronchus or lung
CPT/HCPCS: 36415; 80053; 96523; 83615; 83735; 85025

== ENCOUNTER 2024-04-08 13:40 | Outpatient (RCR) | payer OTHER, SELFPAY ==
[2024-04-08 13:51] LABS: Abs Immature Grans 0.01 10^3/uL (0.0-0.06); Absolute Basophil Count 0.05 10^3/uL (0.0-0.2); Absolute Eosinophil Count 0.17 10^3/uL (0.0-0.7); Absolute Lymphocyte Count 0.95 10^3/uL (1.2-3.4); Absolute Monocyte Count 0.84 10^3/uL (0.1-0.8); Absolute Neutrophil Count 5.12 10^3/uL (1.2-6.7); Basophils % 0.7 %; Eosinophils % 2.4 %; HCT 43.1 % (40.0-50.0); HGB 14.3 g/dL (13.5-17.5); Immature Grans % 0.1 %; Lymphocytes % 13.3 %; MCH 30.4 pg (27.0-33.0); MCHC 33.2 % (32.0-36.0); MCV 92 fL (80-95); MPV 9.7 fL (8.0-11.0); Monocytes % 11.8 %; Neutrophils % 71.7 %; Platelet Count 244 10^3/uL (130-400); RDW 13.2 % (11.8-14.1); RDW-SD 44.1 fL; WBC 7.14 10^3/uL (4.4-10.8)
[2024-04-08 14:03] LABS: ALT 27 U/L (16-63); AST 14 U/L (15-37); Albumin 3.4 g/dL (3.4-5.0); Alkaline Phosphatase 100 U/L (46-116); Anion Gap 6.5 mmol/L (3-11); BUN 18 mg/dL (7-18); Bilirubin, Total 0.28 mg/dL (0.2-1.0); CO2 30.5 mmol/L (21.0-32.0); Calcium 8.6 mg/dL (8.5-10.1); Chloride 106 mmol/L (98-107); Estimated GFR 88.33 (mL/min/1.73m2); Glucose 112 mg/dL (74-106); Potassium 3.8 mmol/L (3.5-5.1); Sodium 143 mmol/L (136-145); Total Protein 7.3 g/dL (6.4-8.2)
[2024-04-08] MEDS: Normal Saline Flush 10 ML SYR IVP (14:43)
[2024-04-08 15:37] LABS: LDH 168 U/L (85-227)
== END 2024-05-03 23:59 | disposition home or self-care (01) ==
LOC: INF 13:40
PROVIDERS: PCP Family Medicine; Visit Provider Internal Medicine Medical Oncology
DX: C34.2 Malignant neoplasm of middle lobe, bronchus or lung (principal)
CPT/HCPCS: 36591; 80053; 83615; 85025

== ENCOUNTER 2024-05-13 03:01 | Outpatient (CLI) | payer OTHER, SELFPAY ==
--- NOTE | 2024-05-13 | DI.MRI_ITS ---
Exam(s) MR BRAIN WO/W EXAM: MR BRAIN WO/W CLINICAL HISTORY: SCLC with brain mets, C79.31, s/p radiation; oncologic surveillance TECHNIQUE: Multiplanar multisequence MRI of the brain was performed. Both noninfused and contrast i nfused sequences were performed. IV Contrast injected was 18 cc Dotarem. COMPARISON: MR MR BRAIN WO/W from 09/15/2023 FINDINGS: CEREBRAL PARENCHYMA: No evidence of intracranial hemorrhage, new mass effect nor shift of midline str ucture. No extraaxial fluid collections. Ventricles are not enlarged nor shifted. The previously described ring-enhancing lesion in the inferior aspect of the right cerebellar hemisph ere is less evident on the present study. There appears to be tiny focus of enhancement at this leve l seen on the MP rage images. The previously present edema surrounding this lesion is no longer pres ent. There are no new ring-enhancing lesions in the brain and there is no new abnormal meningeal enh ancement. There are no areas of restricted diffusion in the brain on DWI imaging. PITUITARY [place]: No mass nor parasellar abnormality. No obvious abnormality in the suprasellar cister n nor within the cavernous sinuses. FLOW VOIDS: The expected flow void are noted. No evidence of obvious aneurysm nor obvious vascular ma lformation. PARANASAL SINUSES: The visualized paranasal sinuses appear unremarkable. ORBITS: No obvious abnormal findings. IMPRESSION: 1. Compared to the prior MRI scan of September 2023 the size of the ring enhancing metastatic lesion in th e inferior aspect of the right cerebellar hemisphere has significantly decreased. There is only smal l focus of enhancement presently evident at this level and there is no remaining edema in the surroun ding white matter 2. There are no new ring-enhancing lesions in the brain nor abnormal meningeal enhancement. DATA REPOSITORY:
[2024-05-13] MEDS: Gadoterate meglumine 20 ML SYRINGE 18 ML IVP (14:10)
[2024-05-13] MEDS: Normal Saline Flush 10 ML SYR IVP (14:11)
== END 2024-05-13 03:21 ==
PROVIDERS: PCP Family Medicine; Visit Provider Radiology Radiation Oncology
DX: C79.31 Secondary malignant neoplasm of brain (principal)
CPT/HCPCS: 70553

== ENCOUNTER 2024-05-13 03:39 | Outpatient (RCR) | payer OTHER, SELFPAY ==
[2024-05-13] MEDS: Normal Saline Flush 10 ML SYR IVP (13:21)
== END 2024-06-03 23:59 | disposition home or self-care (01) ==
LOC: INF 03:39
PROVIDERS: PCP Family Medicine; Visit Provider Internal Medicine Medical Oncology
DX: C79.31 Secondary malignant neoplasm of brain (principal)
CPT/HCPCS: 36591

== ENCOUNTER 2024-12-17 02:31 | Outpatient (RCR) | payer OTHER, SELFPAY ==
[2024-12-12] MEDS: Normal Saline Flush 10 ML SYR IVP (13:02)
[2024-12-12 13:06] LABS: Abs Immature Grans 0.01 10^3/uL (0.0-0.06); HCT 42.0 % (40.0-50.0); HGB 14.1 g/dL (13.5-17.5); Immature Grans % 0.1 %; MCH 30.5 pg (27.0-33.0); MCHC 33.6 % (32.0-36.0); MCV 91 fL (80-95); MPV 9.7 fL (8.0-11.0); Platelet Count 268 10^3/uL (130-400); RBC 4.63 10^6/uL (4.36-5.78); RDW 13.4 % (11.8-14.1); RDW-SD 44.7 fL; WBC 7.30 10^3/uL (4.4-10.8)
[2024-12-12 13:30] LABS: ALT 31 U/L (16-63); AST 17 U/L (15-37); Albumin 3.5 g/dL (3.4-5.0); Alkaline Phosphatase 95 U/L (46-116); Anion Gap 9.3 mmol/L (3-11); BUN 18 mg/dL (7-18); Bilirubin, Total 0.4 mg/dL (0.2-1.0); CO2 28.7 mmol/L (21.0-32.0); Calcium 8.6 mg/dL (8.5-10.1); Chloride 104 mmol/L (98-107); Glucose 120 mg/dL (74-106); Potassium 3.8 mmol/L (3.5-5.1); Sodium 142 mmol/L (136-145); Total Protein 7.0 g/dL (6.4-8.2)
== END 2025-01-03 23:59 | disposition home or self-care (01) ==
LOC: INF 02:31
PROVIDERS: PCP Family Medicine; Visit Provider Internal Medicine Medical Oncology
DX: C79.31 Secondary malignant neoplasm of brain (principal); C34.2 Malignant neoplasm of middle lobe, bronchus or lung; Z45.2 Encounter for adjustment and management of vascular access device
CPT/HCPCS: 36591; 80053; 85025